=== PATIENT | female | born 1940 | race American Indian/Alaskan Native ===

== ENCOUNTER 2017-10-11 17:01 | Observation (INO) | payer MEDICARE ==
[2017-10-11] MEDS ORDERED: ASPIRIN PO ONE (17:31)
[2017-10-11 18:27] LABS: Basophils % (Auto) 0.5 % (0.0-1.8); Eosinophils # (Auto) 0.2 K/mm3 (0.0-0.4); Eosinophils % (Auto) 2.9 % (0.0-4.3); Hematocrit 38.7 % (30.3-42.9); Hemoglobin 12.5 gm/dl (10.1-14.3); Lymphocytes # (Auto) 2.5 K/mm3 (1.2-5.4); Lymphocytes % (Auto) 35.5 % (13.4-35.0); Mean Corpuscular HGB Conc 32 % (30-34); Mean Corpuscular Hemoglobin 29 pg (28-32); Mean Corpuscular Volume 91 fl (79-97); Monocytes # (Auto) 0.7 K/mm3 (0.0-0.8); Monocytes % (Auto) 10.1 % (0.0-7.3); Platelet Count 228 K/mm3 (140-440); Red Blood Count 4.24 M/mm3 (3.65-5.03); Red Cell Distribution Width 16.2 % (13.2-15.2)
[2017-10-11 18:53] LABS: BUN/Creatinine Ratio 19; Blood Urea Nitrogen 21 mg/dL (7-17); Calcium 8.7 mg/dL (8.4-10.2); Hemolysis Index 32
[2017-10-12] MEDS ORDERED: TYLENOL PO ONE (00:37)
[2017-10-12] MEDS ORDERED: NITROSTAT SL ONE (00:37)
[2017-10-12] MEDS ORDERED: SUBLIMAZE IV ONE (00:48)
--- NOTE | 2017-10-12 00:50 | Emergency Department Report ---
HPI - General Chief Complaint: Chest Pain Time Seen by Provider: 10/12/17 00:16 - HPI HPI: The patient is a 77-year-old female presents for evaluation of chest pain. The patient reports chest pain since awakening this morning, approximately 12 hours prior to my evaluation, constant since onset, tightness like in quality, exacerbated with inspiration. She shares that she has not received a stress test or evaluation by cardiology within the past year. The patient denies fever , neck pain, parasthesias, dyspnea, cough, hemoptysis, palpitations, dizziness, syncope, unilateral leg swelling, calf muscle pain. Patient also denies cocaine or other stimulant use, history of DVT or PE, recent immobilization, or history of cancer. ED Past Medical Hx - Past Medical History Previous Medical History?: Yes Hx Hypertension: Yes Hx Diabetes: Yes Hx of Cancer: Yes Additional medical history: Tremors - Surgical History Past Surgical History?: Yes Additional Surgical History: Hysterectomy, right foot, james cataract surgery - Social History Smoking Status: Former Smoker Substance Use Type: None - Medications Home Medications: Home Medications Medication Instructions Recorded Confirmed Last Taken Type Amlodipine Besylate [Norvasc] 10 mg PO DAILY 10/12/17 10/12/17 Unknown History Aspirin EC [Aspirin Enteric Coated 81 mg PO DAILY 10/12/17 10/12/17 Unknown History TAB] Atorvastatin Calcium [Lipitor] 20 mg PO DAILY 10/12/17 10/12/17 Unknown History Carvedilol [Coreg] 12.5 mg PO BID 10/12/17 10/12/17 Unknown History Losartan Potassium 100 mg PO DAILY 10/12/17 10/12/17 Unknown History Metformin HCl [Glucophage] 1,000 mg PO BID 10/12/17 10/12/17 Unknown History ED Review of Systems ROS: Stated complaint: CHEST PAIN Other details as noted in HPI Constitutional: denies: fever ENT: denies: throat or neck pain Respiratory: denies: cough, shortness of breath Cardiovascular: reports chest pain Endocrine: denies unexplained weight loss or gain Gastrointestinal: denies: abdominal pain, nausea Genitourinary: denies: dysuria Musculoskeletal: denies: leg swelling Skin: denies: rash Neurological: denies: headache Hematological/Lymphatic: denies: easy bleeding or easy bruising Psych: denies sadness or hopelessness Physical Exam - Physical Exam Vital Signs: Vital Signs 10/11/17 17:27 Temperature 98.4 F Pulse Rate 87 Respiratory 18 Rate Blood Pressure 167/76 O2 Sat by Pulse 99 Oximetry Physical Exam: General: well-nourished, well-developed, no acute distress Head: Normocephalic, atraumatic Eyes: normal sclera ENT: Mucous membranes are pink and moist Neck: trachea midline, neck supple, No neck stiffness, no cervical adenopathy Respiratory: Breath sounds equal bilaterally, no wheezing, rales, or rhonchi Cardio: S1 and S2 present, no murmurs, rubs, gallops, capillary refill is brisk Abdomen: Normoactive bowel sounds, soft abdomen, no rigidity, no guarding or rebound tenderness Musc: No pitting edema Skin: No rash Neuro: no facial drooping, normal speech Psych: Normal affect ED Course Vital Signs 10/11/17 17:27 Temperature 98.4 F Pulse Rate 87 Respiratory 18 Rate Blood Pressure 167/76 O2 Sat by Pulse 99 Oximetry ED Medical Decision Making - Lab Data Result diagrams: 10/11/17 17:37 10/11/17 17:37 - Medical Decision Making The patient was seen and examined by myself. The patient is placed on a school bus monitor and continuous pulse ox. On initial evaluation, the patient was found to be in no distress. EKG was negative for findings suggestive of acute cardiac infarct. The patient is given an aspirin and a nitroglycerin tablet. The patient is given IV pain medicine. Labs and imaging are obtained. Chest x- ray is negative for pneumothorax, focal consolidation, pulmonary vascular congestion, pleural effusion, or other obvious acute cardiopulmonary disease process. Lab results were non-revealing including negative troponin, WBC, hemoglobin, hematocrit, electrolytes, renal function. CT scan of the chest is negative for pulmonary embolus. The patient was reevaluated and reported that their symptoms were improved. As the patient has chest pain and risk factors for development of acute coronary event, the patient will be admitted for close cardiopulmonary monitoring, serial troponins, and evaluation by cardiology. The physician on-call was contacted. They presented to the emergency department and evaluated the patient. They agreed to admit the patient. The ED admit order was placed. The patient was admitted in guarded condition. Critical care attestation.: If time is entered above; I have spent that time in minutes in the direct care of this critically ill patient, excluding procedure time. ED Disposition Clinical Impression: Acute chest pain, Hypokalemia Acute congestive heart failure Qualifiers: Heart failure type: systolic Qualified Code(s): I50.21 - Acute systolic ( congestive) heart failure Disposition: OP ADMIT IP TO THIS HOSP Is pt being admited?: Yes Does the pt Need Aspirin: Yes Condition: Fair Time of Disposition: 00:49 HIRAM score - Hiram Score Age > 65: (1) Yes Aspirin use within the Past 7 Days: (1) Yes 3 or more CAD Risk Factors: (1) Yes 2 or more Angina events in past 24 hrs: (0) No Known CAD with more than 50% Stenosis: (0) No Elevated Cardiac Markers: (0) No ST Deviation Greater than 0.5mm: (0) No HIRAM Score: 3
--- NOTE | 2017-10-12 01:25 | XRay Report ---
FINAL REPORT EXAM: XR CHEST 1V AP HISTORY: chest pain TECHNIQUE: A portable upright view the chest was submitted. FINDINGS: The heart size and mediastinum appear normal. The lungs are clear. Pleural fluid is not seen. The bones and soft tissues otherwise reveal obesity. IMPRESSION: No active chest disease.
--- NOTE | 2017-10-12 02:58 | Cat Scan Report ---
FINAL REPORT EXAM: CT ANGIO CHEST HISTORY: right sided chest pain with inspiration TECHNIQUE: A CT angiogram was performed following the intravenous injection of iodinated contrast. Rotational, sagittal and coronal MIP reconstructions were reviewed. FINDINGS: There is no evidence of pulmonary embolus or aortic dissection. The thoracic aorta is normal in caliber. The heart is mildly enlarged. Pericardial fluid is not seen. The lungs appear mildly congested. There are no localized infiltrates or pneumothorax. Pleural fluid is not seen. There is no evidence of adenopathy. In the upper abdomen the adrenal glands are not enlarged. The skeletal structures reveal multilevel disc degeneration in the thoracic spine. At the thoracic inlet both thyroid lobes reveal heterogeneous attenuation. Underlying goitrous changes cannot be excluded. IMPRESSION: No evidence of pulmonary embolus or aortic dissection. Mild vascular congestion. No evidence of infiltrates, effusions or pneumothorax. 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 Outpatient thyroid sonography is recommended for better evaluation.
[2017-10-12] MEDS ORDERED: TYLENOL PO PRN (04:35)
[2017-10-12] MEDS ORDERED: ZOFRAN IV PRN (04:35)
[2017-10-12] MEDS ORDERED: SODIUM CHLORIDE FLUSH SYRINGE 10 ML IV PRN (04:35)
--- NOTE | 2017-10-12 04:48 | History and Physical Report ---
History of Present Illness Date of examination: 10/12/17 History of present illness: 77-year-old man with a history of hypertension, diabetes, remote history of cancer, which she cannot recall the type of cancer, grossly emergency room with complaints of chest pain. Pain is and the right substernal area started today, described as dull, sharp pain, density 4/10, no radiation, worse with deep breath, lasts for a few seconds. She denies nausea vomiting, shortness, diaphoresis or palpitation Review of systems Constitutional: no weight loss, chills Ears, eyes, nose, mouth and throat: no nasal congestion, no nasal discharge, no sinus pressure, no vision change, no red eye. Neck: No neck pain or rigidity. Cardiovascular: no palpitations Respiratory: No cough, shortness of breath Gastrointestinal: no abdominal pain, hematochezia Genitourinary : no dysuria, frequency , no hematuria Musculoskeletal: no joint swelling or muscle ache Integumentary: no rash, no pruritis Neurological: no parathesias, no numbness, no focal weakness Endocrine: no cold or heat intolerance, no polyuria or polydipsia Hematologic/Lymphatic: no easy bruising, no easy bleeding, no gland swelling Allergic/Immunologic: no urticaria, no angioedema. PAST MEDICAL HISTORY: Hypertension, diabetes, cancer PAST SURGICAL HISTORY: Hysterectomy, cataract extraction, right foot SOCIAL HISTORY: Denies tobacco, alcohol, drugs FAMILY HISTORY: Hypertension, diabetes Medications and Allergies Allergies Allergy/AdvReac Type Severity Reaction Status Date / Time No Known Allergies Allergy Verified 03/30/15 14:49 Home Medications Medication Instructions Recorded Confirmed Last Taken Type Omeprazole [PriLOSEC] 20 mg PO BID #60 cap 04/18/13 Unknown Rx Active Meds: Active Medications Acetaminophen (Tylenol) 650 mg PO Q4H PRN PRN Reason: Pain MILD(1-3)/Fever >100.5/[place] Aspirin (Baby Aspirin) 81 mg PO QDAY [facility] Enoxaparin Sodium (Lovenox) 40 mg SUB-Q QDAY@1000 [facility] Ondansetron HCl (Zofran) 4 mg IV Q8H PRN PRN Reason: Nausea And Vomiting Sodium Chloride (Sodium Chloride Flush Syringe 10 Ml) 10 ml IV BID [facility] Sodium Chloride (Sodium Chloride Flush Syringe 10 Ml) 10 ml IV PRN PRN PRN Reason: LINE FLUSH Exam - Physical Exam Narrative exam: Gen. appearance: Patient lying in bed, no apparent distress HEENT: Normocephalic, atraumatic, pupils equally round and reactive to light, extraocular movement intact, and no sclericterus,. No JVD or thyromegaly or nodule,neck supple, no carotid bruit ,mucous membranes moist, no exudate or erythema Heart: S1, S2, regular rate and rhythm Lungs: Clear to auscultation bilaterally, breathing comfortable Abdomen: Positive bowel sounds, nontender, nondistended, no organomegaly Extremity: No edema, cyanosis, clubbing Skin: No rash, nodules, warm, dry Neuro: Oriented 3, cranial nerves II-12 intact, speech is fluent, motor and sensory intact - Constitutional Vitals: Temp Pulse Resp BP Pulse Ox 98.4 F 86 18 176/91 96 10/11/17 17:27 10/12/17 02:01 10/12/17 02:32 10/12/17 04:30 10/12/17 04:30 Results - Labs CBC & Chem 7: 10/11/17 17:37 10/11/17 17:37 Labs: Abnormal lab results 10/11/17 10/11/17 Range/Units 17:37 17:37 RDW 16.2 H (13.2-15.2) % Lymph % (Auto) 35.5 H (13.4-35.0) % [place] % (Auto) 10.1 H (0.0-7.3) % Potassium 3.5 L (3.6-5.0) mmol/L BUN 21 H (7-17) mg/dL Glucose 308 H (65-100) mg/dL - Imaging and Cardiology Chest x-ray: image reviewed CT scan - chest: report reviewed Assessment and Plan Assessment Atypical chest pain Hypertension Diabetes Cancer Plan Admit to medicine Cardiac enzymes, consult cardiology Check fingersticks, initiated insulin sliding scale DVT prophylaxis
[2017-10-12] MEDS ORDERED: D50W (25GM) Syringe IV PRN (04:55)
[2017-10-12] MEDS: HumuLIN R SUB-Q SCH ×4 (09:00→22:21)
[2017-10-12] MEDS: GLUCOPHAGE PO SCH ×2 (09:25→17:30)
[2017-10-12] MEDS ORDERED: LOVENOX SUB-Q SCH (10:00)
[2017-10-12] MEDS ORDERED: NON-FORMULARY (Metformin Hcl [Glucophage] 1,000 MG) PO SCH (10:00)
[2017-10-12] MEDS ORDERED: NON-FORMULARY (Losartan Potassium [Losartan Potassium] 100 MG) PO SCH (10:00)
[2017-10-12] MEDS ORDERED: BABY ASPIRIN PO SCH (10:00)
[2017-10-12] MEDS: NORVASC PO SCH (10:50)
[2017-10-12] MEDS: COREG PO SCH ×2 (10:50→22:16)
[2017-10-12] MEDS: COZAAR PO SCH (10:50)
[2017-10-12] MEDS: SODIUM CHLORIDE FLUSH SYRINGE 10 ML IV SCH ×2 (10:50→22:20)
[2017-10-12] MEDS: LOVENOX SUB-Q SCH (11:55)
--- NOTE | 2017-10-12 17:09 | Event Note ---
Date: 10/12/17 Patient was seen and evaluated this morning, patient's pain subsided, continue management per H&P. Follow cardiology consult.
[2017-10-12] MEDS ORDERED: HumuLIN R ONE (18:01)
[2017-10-12] MEDS ORDERED: GLUCOPHAGE ONE (18:02)
--- NOTE | 2017-10-12 18:32 | Consultation ---
History of Present Illness Consult date: 10/12/17 Consult reason: chest pain History of present illness: 77-year-old woman with history of hypertension and diabetes who is admitted with chest pain. Chest pain is atypical, nonexertional and reportedly pleuritic. A CT angiogram done in the emergency room was negative for pulmonary embolism. She is admitted for further evaluation and management. A 12-lead EKG sinus rhythm. Past History Past Medical History: diabetes, hypertension Medications and Allergies Allergies Allergy/AdvReac Type Severity Reaction Status Date / Time No Known Allergies Allergy Verified 03/30/15 14:49 Home Medications Medication Instructions Recorded Confirmed Last Taken Type Amlodipine Besylate [Norvasc] 10 mg PO DAILY 10/12/17 10/12/17 Unknown History Aspirin EC [Aspirin Enteric Coated 81 mg PO DAILY 10/12/17 10/12/17 Unknown History TAB] Atorvastatin Calcium [Lipitor] 20 mg PO DAILY 10/12/17 10/12/17 Unknown History Carvedilol [Coreg] 12.5 mg PO BID 10/12/17 10/12/17 Unknown History Losartan Potassium 100 mg PO DAILY 10/12/17 10/12/17 Unknown History Metformin HCl [Glucophage] 1,000 mg PO BID 10/12/17 10/12/17 Unknown History Active Meds: Active Medications Acetaminophen (Tylenol) 650 mg PO Q4H PRN PRN Reason: Pain MILD(1-3)/Fever >100.5/[place] Amlodipine Besylate (Norvasc) 10 mg PO DAILY [facility] Last Admin: 10/12/17 10:50 Dose: 10 mg Aspirin (Halfprin Ec) 81 mg PO DAILY [facility] Atorvastatin Calcium (Lipitor) 20 mg PO DAILY [facility] Last Admin: 10/12/17 10:50 Dose: 20 mg Carvedilol (Coreg) 12.5 mg PO BID [facility] Last Admin: 10/12/17 10:50 Dose: 12.5 mg Dextrose (D50w (25gm) Syringe) 50 ml IV PRN PRN PRN Reason: Hypoglycemia Enoxaparin Sodium (Lovenox) 40 mg SUB-Q QDAY@1000 [facility] Last Admin: 10/12/17 11:55 Dose: 40 mg Insulin Human Regular (Humulin R) 0 units SUB-Q [facility]; Protocol Last Admin: 10/12/17 11:30 Dose: 10 units Losartan Potassium (Cozaar) 100 mg PO QDAY [facility] Last Admin: 10/12/17 10:50 Dose: 100 mg Metformin HCl (Glucophage) 1,000 mg PO BIDDIAB [facility] Last Admin: 10/12/17 09:25 Dose: 1,000 mg Ondansetron HCl (Zofran) 4 mg IV Q8H PRN PRN Reason: Nausea And Vomiting Sodium Chloride (Sodium Chloride Flush Syringe 10 Ml) 10 ml IV BID [facility] Last Admin: 10/12/17 10:50 Dose: 10 ml Sodium Chloride (Sodium Chloride Flush Syringe 10 Ml) 10 ml IV PRN PRN PRN Reason: LINE FLUSH Review of Systems Cardiovascular: chest pain, shortness of breath, no orthopnea, no palpitations, no rapid/irregular heart beat, no edema, no syncope, no lightheadedness Physical Examination Vital Signs Temp Pulse Resp BP Pulse Ox 98.4 F 87 18 167/76 99 10/11/17 17:27 10/11/17 17:27 10/11/17 17:27 10/11/17 17:27 10/11/17 17:27 General appearance: no acute distress HEENT: Positive: PERRL Neck: Positive: neck supple Cardiac: Positive: Reg Rate and Rhythm Lungs: Positive: Decreased Breath Sounds Neuro: Positive: Grossly Intact Abdomen: Positive: Soft Female genitourinary: deferred Skin: Positive: Clear Extremities: Absent: edema Results 10/11/17 17:37 10/11/17 17:37 Comprehensive Metabolic Panel 10/11/17 Range/Units 17:37 Sodium 142 (137-145) mmol/L Potassium 3.5 L (3.6-5.0) mmol/L Chloride 99.5 (98-107) mmol/L Carbon Dioxide 24 (22-30) mmol/L BUN 21 H (7-17) mg/dL Creatinine 1.1 (0.7-1.2) mg/dL Glucose 308 H (65-100) mg/dL Calcium 8.7 (8.4-10.2) mg/dL EKG interpretations - Telemetry EKG Rhythm: Sinus Rhythm Assessment and Plan - Patient Problems (1) Chest pain Current Visit: Yes Status: Acute Plan to address problem: Chest pain is atypical, CT of the chest is negative. Chest x-ray reveals mild cardiomegaly, but no heart failure. Angina rule out MA protocol, patient will need noninvasive ischemic evaluation prior to discharge.
[2017-10-13 05:08] LABS: Basophils % (Auto) 0.5 % (0.0-1.8); Eosinophils # (Auto) 0.2 K/mm3 (0.0-0.4); Eosinophils % (Auto) 3.4 % (0.0-4.3); Hematocrit 36.4 % (30.3-42.9); Hemoglobin 11.9 gm/dl (10.1-14.3); Lymphocytes # (Auto) 2.2 K/mm3 (1.2-5.4); Lymphocytes % (Auto) 35.6 % (13.4-35.0); Mean Corpuscular HGB Conc 33 % (30-34); Mean Corpuscular Hemoglobin 30 pg (28-32); Mean Corpuscular Volume 90 fl (79-97); Monocytes # (Auto) 0.7 K/mm3 (0.0-0.8); Monocytes % (Auto) 10.8 % (0.0-7.3); Platelet Count 193 K/mm3 (140-440); Red Blood Count 4.03 M/mm3 (3.65-5.03); Red Cell Distribution Width 16.2 % (13.2-15.2)
[2017-10-13 05:29] LABS: BUN/Creatinine Ratio 21; Blood Urea Nitrogen 19 mg/dL (7-17); Calcium 8.4 mg/dL (8.4-10.2); Hemolysis Index 3
[2017-10-13] MEDS ORDERED: APRESOLINE IV PRN (06:30)
[2017-10-13] MEDS: HumuLIN R SUB-Q SCH ×2 (07:46→13:15)
[2017-10-13] MEDS: HALFPRIN EC PO SCH ×2 (07:46→12:58)
[2017-10-13] MEDS: GLUCOPHAGE PO SCH (08:50)
[2017-10-13] MEDS ORDERED: LEXISCAN IV ONE ×2 (09:29→09:30)
[2017-10-13] MEDS ORDERED: ZOFRAN ONE (10:42)
--- NOTE | 2017-10-13 11:36 | Discharge Summary ---
<KANWAL LEYVA - Last Filed: 10/13/17 16:28> Providers - Providers Date of Admission: 10/12/17 04:35 Date of discharge: 10/13/17 Attending physician: DAISY VÁSQUEZ 10/12/17 04:35 Consult to Physician [CONS] Routine Comment: Consulting Provider: CARLOS SOTO Physician Instructions: Reason For Exam: cp Primary care physician: ENRRIQUE PIERCE Hospitalization Condition: Stable Hospital course: 77-year-old woman with a history of hypertension, diabetes, remote history of cancer, presented to the emergency room with complaints of chest pain Patient receive a cardiac workup which began with serial cardiac enzymes which were negative. Cardiology was consulted and patient underwent Persantine thallium stress test which was negative. The etiology of patient's chest pain was likely that of costochondritis as the symptoms were reproducible on exam. Patient was stable for discharge back to her home and will resume her medications. Discharge diagnoses Atypical chest pain Costochondritis Hypertension Diabetes History of cancer DVT prophylaxis Disposition: TO HOME OR SELFCARE Time spent for discharge: 32 minutes Core Measure Documentation - Palliative Care Palliative Care/ Comfort Measures: Not Applicable - Core Measures Any of the following diagnoses?: none Exam - Constitutional Vitals: Temp Pulse Resp BP Pulse Ox 98.7 F 97 H 18 130/64 98 10/13/17 08:37 10/13/17 10:07 10/13/17 08:37 10/13/17 08:37 10/13/17 08:37 General appearance: Present: no acute distress, well-nourished - EENT Eyes: Present: PERRL ENT: hearing intact, clear oral mucosa - Neck Neck: Present: supple, normal ROM - Respiratory Respiratory effort: normal Respiratory: bilateral: CTA - Cardiovascular Heart Sounds: Present: S1 & S2. Absent: rub, click - Extremities Extremities: pulses symmetrical, No edema Peripheral Pulses: within normal limits - Abdominal General gastrointestinal: Present: soft, non-tender, non-distended, normal bowel sounds - Integumentary Integumentary: Present: clear, warm, dry - Musculoskeletal Musculoskeletal: gait normal, strength equal bilaterally - Psychiatric Psychiatric: appropriate mood/affect, intact judgment & insight - Neurologic Neurologic: CNII-XII intact, moves all extremities Plan Diet: low fat, low cholesterol, low salt, diabetic Follow up with: ENRRIQUE PIERCE MD [Primary Care Provider] - 3-5 Days Pending Studies Discharge is pending a negative stress test <DAISY VÁSQUEZ - Last Filed: 10/14/17 07:22> Providers - Providers Date of Admission: 10/12/17 04:35 Attending physician: DAISY VÁSQUEZ 10/12/17 04:35 Consult to Physician [CONS] Routine Comment: Consulting Provider: CARLOS SOTO Physician Instructions: Reason For Exam: cp Primary care physician: ENRRIQUE PIERCE Hospitalization Hospital course: I saw and evaluated the patient. I agree with the findings and the plan of care as documented in the Nurse Practitioner's~note, with the following corrections and additions. Exam - Constitutional Vitals: Temp Pulse Resp BP Pulse Ox 98.3 F 90 18 130/64 100 10/13/17 12:50 10/13/17 12:57 10/13/17 12:50 10/13/17 12:57 10/13/17 12:50
--- NOTE | 2017-10-13 12:53 | Progress Note ---
Assessment and Plan - Patient Problems (1) Chest pain Current Visit: Yes Status: Acute Plan to address problem: Chest pain is atypical, CT of the chest is negative. Chest x-ray reveals mild cardiomegaly, but no heart failure. Noninvasive ischemic evaluation with Persantine thallium. Subjective Date of service: 10/13/17 Interval history: The patient underwent a Persantine thallium stress test, results are pending. Objective Vital Signs Temp Pulse Resp Resp BP BP Pulse Ox 10/13/17 12:50 98.3 F 91 H 18 151/75 100 10/13/17 10:44 105 H 229/108 10/13/17 10:43 109 H 224/110 10/13/17 10:42 114 H 152/68 10/13/17 10:41 67 181/74 10/13/17 10:40 103 H 198/97 10/13/17 10:07 97 H 10/13/17 09:25 89 198/97 10/13/17 08:37 98.7 F 90 18 130/64 98 10/13/17 07:11 90 130/64 10/13/17 06:52 89 199/94 10/13/17 01:35 20 10/13/17 01:25 89 10/13/17 00:00 98.2 F 89 18 180/93 97 10/12/17 22:16 89 187/92 10/12/17 21:08 99 10/12/17 20:00 98.5 F 89 18 187/92 97 10/12/17 18:02 159/71 93 10/12/17 17:31 98.6 F 84 18 154/85 94 10/12/17 16:00 89 20 159/71 98 10/12/17 15:30 82 16 140/59 99 10/12/17 15:00 82 17 162/76 97 10/12/17 14:30 84 18 159/77 97 10/12/17 14:00 88 15 164/85 97 10/12/17 13:30 89 18 193/145 97 10/12/17 13:00 88 16 189/111 97 - Physical Examination General: No Apparent Distress HEENT: Positive: PERRL Neck: Positive: neck supple Cardiac: Positive: Reg Rate and Rhythm Lungs: Positive: clear to auscultation Neuro: Positive: Grossly Intact Abdomen: Positive: Soft Skin: Positive: Clear Extremities: Absent: edema - Labs and Meds CBC 10/13/17 Range/Units 04:32 WBC 6.1 (4.5-11.0) K/mm3 RBC 4.03 (3.65-5.03) M/mm3 Hgb 11.9 (10.1-14.3) gm/dl Hct 36.4 (30.3-42.9) % Plt Count 193 (140-440) K/mm3 Lymph # 2.2 (1.2-5.4) K/mm3 [place] # 0.7 (0.0-0.8) K/mm3 Eos # 0.2 (0.0-0.4) K/mm3 Baso # 0.0 (0.0-0.1) K/mm3 Comprehensive Metabolic Panel 10/13/17 Range/Units 04:32 Sodium 141 (137-145) mmol/L Potassium 3.8 (3.6-5.0) mmol/L Chloride 100.1 (98-107) mmol/L Carbon Dioxide 27 (22-30) mmol/L BUN 19 H (7-17) mg/dL Creatinine 0.9 (0.7-1.2) mg/dL Glucose 250 H (65-100) mg/dL Calcium 8.4 (8.4-10.2) mg/dL
[2017-10-13] MEDS: LOVENOX SUB-Q SCH (12:56)
[2017-10-13] MEDS: COREG PO SCH (12:57)
[2017-10-13] MEDS: NORVASC PO SCH (12:57)
[2017-10-13] MEDS: COZAAR PO SCH (12:57)
[2017-10-13 12:58] VITALS: BP 130/64
[2017-10-13] MEDS: SODIUM CHLORIDE FLUSH SYRINGE 10 ML IV SCH (12:58)
--- NOTE | 2017-10-13 20:39 | Treadmill Report ---
THALLIUM STRESS TEST LEFT VENTRICLE: Left ventricular chamber size is within normal spread. Perfusion study demonstrates homogeneous uptake of the tracer in all segments, no significant perfusion defects identified. Normal apical thinning is noted. Gated analysis demonstrates normal left ventricular systolic function, ejection fraction 63%. CONCLUSION: Normal myocardial perfusion study. JOB# [id number] CA/NTS
== END 2017-10-13 16:27 | disposition home or self-care (01) ==
LOC: ED 17:01 → 4A 10-12 04:35 → INTOOBSV 10-12 04:35 → 4A 10-12 15:35
PROVIDERS: ADMIT Internal Medicine; ATTEND Hospitalist
DX: M94.0 Chondrocostal junction syndrome [Tietze] (principal); I10 Essential (primary) hypertension; E11.9 Type 2 diabetes mellitus without complications; Z82.49 Family history of ischemic heart disease and other diseases of the circulatory system; Z87.891 Personal history of nicotine dependence; Z85.9 Personal history of malignant neoplasm, unspecified
CPT/HCPCS: 36415; 71045; 71275; 78452; 80048; 82962; 83880; 84484; 85025; 93005; 93010; 93017; 96372; 96374; 96375; 99285; A9270; A9502; G0378; J0360; J1650; J2405; J2785; J3010; Q9967; J1815